=== PATIENT | male | born 1965 | race Caucasian/White ===

== ENCOUNTER 2016-06-25 15:41 | Emergency (ER) | payer OTHER ==
[~2016-06-25] VITALS: Ht 167.6 cm; Wt 117.9 kg
[2016-06-25 15:43] VITALS: BP 128/78
--- NOTE | 2016-06-25 15:50 | NUR ---
PT WALKED INTO TRIAGE WITH FAMILY MEMBER--SAT DOWN C/O SOB AND EXCESS CONGESTION--TILTED HEAD BACK AND ALLOWED POOL OF CONGESTION TO SIT BACK OF THROAT. PT SPITTING UP AND SNOT TO RUN DOWN CHEEK. ABLE TO SPEAK CLEARLY--SKIN REMAINED DRY AND WARM TO TOUCH.
--- NOTE | 2016-06-25 16:01 | NUR ---
IN TRIAGE EVAL PT
[2016-06-25] MEDS ORDERED: NACL 0.9% 1,000 ML IV SCH (16:04)
[2016-06-25] MEDS ORDERED: IPRATROPIUM 0.02% 0.5 MG/2.5 ML NEBU INH ONE (16:05)
[2016-06-25] MEDS ORDERED: ALBUTEROL 0.083% 2.5 MG/3 ML NEBU INH ONE (16:05)
[2016-06-25] MEDS ORDERED: ONDANSETRON 4 MG/2 ML VIAL IVP ONE (16:05)
[2016-06-25] MEDS ORDERED: FUROSEMIDE 40 MG TAB PO ONE (16:10)
--- NOTE | 2016-06-25 17:38 | NUR ---
WHILE WAITING FOR AN AVAILABLE ROOM TO CONTINUE TREATMENT, PT WAS SEATED NEXT TO MD ROOM. PT WAS AMBULATORY TO RESTROOM AND BACK. REMOVED SOCKS AND SHOES FOR PERSONAL COMFORT. AT TIME OF AVAILABLE ROOM , PT DECIDED HE NO LONGER WANTED FURTHER TREATMENT. SPOKE WITH PT AND EXPLAINED RISK FACTOR LEADING UP TO . PT STATED HE KNOWS HIS BODY AND FEELS BETTER. HIS FATHER IS A RN AND PT WILL F/U WITH PMD MONDAY.
[2016-06-25 17:40] VITALS: BP 128/79
--- NOTE | 2016-06-25 17:42 | NUR ---
Patient does not wish to proceed with medical care recommended by . Patient given information related to possible complications, up to and including , which could occur as a result of leaving hospital at this time. Patient verbalizes understanding of risks involved leaving against medical advice. Patient has signed AMA form.
== END 2016-06-25 17:42 | disposition left against medical advice (07) ==
LOC: MED 15:41
DX: I50.9 Heart failure, unspecified (principal); E11.9 Type 2 diabetes mellitus without complications
CPT/HCPCS: 36415; 80053; 81001; 82150; 82553; 83690; 83880; 84484; 85025; 85379; 85610; 85730; 93005; 94640; 99285; J7613; J7644